=== PATIENT | female | born 1975 | race Hispanic/Latino ===

== ENCOUNTER 2018-09-15 00:12 | Outpatient (CLI) | payer BC ==
[2018-09-15 12:35] LABS: Hemoglobin 13.6 g/dL (12.0-16.0); Mean Corpuscular Hemoglobin 32.1 pg (27.0-31.0); Mean Corpuscular Volume 94.6 fL (78.0-98.0); Mean Platelet Volume 6.9 fL (7.4-10.4); Platelet Count 379 thou/uL (130-400); RBC Distribution Width 10.3 % (11.5-14.5); Red Blood Cell (RBC) Count 4.22 mill/uL (4.20-5.40); White Blood Cell (WBC) Count 8.1 thou/uL (4.8-10.8)
[2018-09-15 12:42] LABS: Prothrombin Time 12.9 SEC (12.0-14.7)
[2018-09-15 12:43] LABS: PTT 32.5 SEC (22.9-36.1)
[2018-09-15 12:59] LABS: Anion Gap 11 mmol/L (10-20); BUN (Urea Nitrogen) 13 mg/dL (7.0-18.7); Calc. Creatinine Clearance 0 mL/min (70-130); Calcium 9.7 mg/dL (7.8-10.44); Carbon Dioxide 26 mmol/L (22-29); Chloride 106 mmol/L (98-107); Estimated GFR-MDRD 64; Glucose 91 mg/dL (70-105); Potassium 3.7 mmol/L (3.5-5.1); Sodium 139 mmol/L (136-145)
--- NOTE | 2018-09-17 16:36 | EKG ---
Test Reason : Blood Pressure : / mmHG Vent. Rate : 073 BPM Atrial Rate : 073 BPM P-R Int : 132 ms QRS Dur : 078 ms QT Int : 378 ms P-R-T Axes : 067 092 070 degrees QTc Int : 416 ms Normal sinus rhythm with sinus arrhythmia Rightward axis Borderline ECG No previous ECGs available Confirmed by DR. Tatiana HARRY ([id number]) on 09/17/2018 4:35:58 PM Referred By: KAYE Confirmed By:DR. Tatiana HARRY
== END 2018-09-15 00:13 | disposition home or self-care (01) ==
LOC: LABBT 00:12
PROVIDERS: ATTEND Surgery
DX: Z01.818 Encounter for other preprocedural examination (principal); M48.02 Spinal stenosis, cervical region; M54.12 Radiculopathy, cervical region
CPT/HCPCS: 80048; 85027; 85610; 85730; 93005; 93010

== ENCOUNTER 2018-09-21 05:37 | Day surgery (SDC) | payer BC ==
[2018-09-15 11:46] VITALS: BMI 24.4
[2018-09-21] MEDS ORDERED: Fentanyl 250 MCG/5 ML VIAL ONE (06:21)
[2018-09-21] MEDS ORDERED: Thrombin 5000 UNITS/5 ML VIAL ONE (06:33)
[2018-09-21] MEDS ORDERED: Sodium Chloride 0.9% 10 ML ONE (06:34)
[2018-09-21] MEDS ORDERED: Mag-Al 1200 mg/1200 mg/30 ML UDCUP PO PRN (09:44)
[2018-09-21] MEDS ORDERED: Acetaminophen 325 MG TAB PO PRN (09:44)
[2018-09-21] MEDS ORDERED: Morphine 2 MG/ML SYRINGE SLOW IVP PRN (09:44)
[2018-09-21] MEDS ORDERED: HYDROcodone/Acetaminophen 7.5/325 mg Tablet PO PRN (09:44)
[2018-09-21] MEDS ORDERED: Fleet Enema 133 ML BOT PR PRN (09:44)
[2018-09-21] MEDS ORDERED: Milk Of Magnesia 30 ML UDCUP PO PRN (09:44)
[2018-09-21] MEDS ORDERED: Ondansetron PF 4 MG/2 ML Vial IVP PRN (09:44)
[2018-09-21] MEDS ORDERED: Bisacodyl 10 MG SUPP PR PRN (09:44)
[2018-09-21] MEDS ORDERED: Fentanyl 100 MCG/2 ML VIAL ONE (09:45)
[2018-09-21] MEDS ORDERED: CEFAZOLIN 2 GM in Premix Bag 1 BAG IVPB SCH (09:45)
[2018-09-21] MEDS ORDERED: Promethazine HCl 25 MG/ML VIAL SLOW IVP PRN (09:49)
[2018-09-21] MEDS ORDERED: Promethazine HCl 25 MG/ML VIAL IM PRN (09:49)
[2018-09-21] MEDS ORDERED: HYDROmorphone 2 MG/ML VIAL SLOW IVP PRN (09:49)
[2018-09-21] MEDS ORDERED: Meperidine HCl/PF 25 MG/ML VIAL SLOW IVP PRN (09:49)
[2018-09-21] MEDS ORDERED: Morphine Sulfate 2 MG/ML SYRINGE SLOW IVP PRN (09:49)
[2018-09-21] MEDS ORDERED: Ondansetron HCl/PF 4 MG/2 ML Vial IVP PRN (09:49)
[2018-09-21] MEDS ORDERED: Ketorolac Tromethamine 30 MG/ML VIAL IVP PRN (09:49)
[2018-09-21] MEDS ORDERED: HYDROmorphone 2 MG/ML VIAL ONE (09:54)
[2018-09-21] MEDS ORDERED: tiZANidine HCl 4 MG TAB ONE ×2 (10:05→16:36)
[2018-09-21] MEDS ORDERED: Rocuronium Bromide 10 MG/ML (10ML VIAL) ONE (12:16)
[2018-09-21] MEDS ORDERED: Glycopyrrolate 0.2 MG/ML 5 ML SYRINGE ONE (12:16)
[2018-09-21] MEDS ORDERED: PROPOFOL 200 MG/20 ML VIAL ONE (12:16)
[2018-09-21] MEDS ORDERED: Ondansetron PF 4 MG/2 ML Vial ONE (12:16)
[2018-09-21] MEDS ORDERED: ePHEDrine 50 MG/ML VIAL ONE (12:16)
[2018-09-21] MEDS ORDERED: Lidocaine 1% PF 5 ML VIAL ONE (12:16)
[2018-09-21] MEDS ORDERED: Dexamethasone 20 MG/5 ML VIAL ONE (12:16)
[2018-09-21] MEDS ORDERED: PHENYLEPHRINE-NS 100 MCG/ML 10 ML SYRINGE ONE (12:16)
--- NOTE | 2018-09-21 16:11 | OP ---
DATE OF PROCEDURE: 09/21/2018 OPERATING ROOM: 12. WOUND CLASSIFICATION: Type 1 wound. PRINCIPAL EMBEDDED SOFTWARE ENGINEER: Olvin Henderson PA-C. PRE-PROCEDURE DIAGNOSIS: Neck and right arm pain and weakness with right C6 radiculopathy and C5-C6 disk extrusion. POSTPROCEDURE DIAGNOSIS: Neck and right arm pain and weakness with right C6 radiculopathy and C5-C6 disk extrusion. PROCEDURES PERFORMED: 1. Anterior C5-C6 diskectomy for decompression of spinal cord nerve roots. 2. Interbody spacer placement, packed with local bone autograft obtained same incision and allograft for arthrodesis. 3. Anterior cervical plate and screw fixation C5-C6. 4. Use of operative microscope for microdissection. DESCRIPTION OF PROCEDURE: After informed consent was obtained from the patient, the patient was brought to the OR. Proper patient, pause, and identification were carried out. She was placed under excellent endotracheal anesthesia and positioned supine on the OR table. All appropriate points were padded. We identified a right transverse charity to allow for approach to the C5-C6 segment. This region was sterilely cleansed, prepared, and draped. Proper patient, pause, and identification were carried out. The wound was then opened with combination of sharp, monopolar, and blunt dissection. The anterior C5-C6 segments were exposed after proceeding lateral to the larynx, pharynx, and tracheoesophageal bundle and medial to the right carotid sheath. We identified the longus colli muscles and these were swept laterally. Localization film confirmed our area of interest. We then turned our attention to retraction and distraction at the C5-C6 segment. The microscope was brought in for microdissection and a diskectomy was performed at C5-C6 with decompression of spinal cord and bilateral C6 nerve roots. Disk material was specifically removed out of the C6 foramina as well given that was the source of the patient's symptoms. We then placed an interbody spacer for appropriate dimension and this was packed with local bone autograft obtained from same incision, allograft. The microscope was then removed and anterior cervical plate and screw fixation at C5-C6 occurred with final tightening. Copious irrigation occurred throughout as did maximizing hemostasis. The wound was then closed in anatomic layers over a drain. The patient then emerged from anesthesia. Job ID: [id number]
[2018-09-21] MEDS: Sodium Chloride 0.9% 1,000 ML IV SCH ×2 (18:13→23:10)
[2018-09-21] MEDS: CEFAZOLIN 2 GM in Premix Bag 1 BAG IVPB SCH ×2 (18:14→22:16)
[2018-09-21] MEDS: traMADol HCl 50 MG TAB PO PRN (19:12)
[2018-09-21] MEDS: tiZANidine HCl 4 MG TAB PO PRN (20:42)
[2018-09-21] MEDS: Acetaminophen/Codeine 30-300mg Tablet PO PRN (20:42)
[2018-09-22] MEDS: Acetaminophen/Codeine 30-300mg Tablet PO PRN (02:27)
[2018-09-22] MEDS: Sodium Chloride 0.9% 1,000 ML IV SCH (02:27)
[2018-09-22] MEDS: CEFAZOLIN 2 GM in Premix Bag 1 BAG IVPB SCH (06:12)
[2018-09-22 07:24] VITALS: BP 106/72; TEMP 98.3
[2018-09-22] MEDS: tiZANidine HCl 4 MG TAB PO PRN (07:53)
[2018-09-22] MEDS: traMADol HCl 50 MG TAB PO PRN (07:53)
--- NOTE | 2018-09-22 10:09 | PRG ---
DATE OF SERVICE: 09/22/2018 SUBJECTIVE: Ms. Alvarado is postoperative day 1 from C5-C6 ACDF. She has had improvement in her arm pain and weakness. She, neurologically, is doing well. Her drain output has been satisfactory. We will plan on dismissal and have gone over interim postoperative issues. Job ID: [id number]
== END 2018-09-22 10:49 | disposition home or self-care (01) ==
LOC: SDC 05:37 → SURG A 09:44 → SDC 09-22 10:49
PROVIDERS: ATTEND Surgery
PROC: 0RG10A0 Fusion of Cervical Vertebral Joint with Interbody Fusion Device, Anterior Approach, Anterior Column, Open Approach (ICD-10-PCS; principal; 2018-09-21)
PROC: 0RT30ZZ Resection of Cervical Vertebral Disc, Open Approach (ICD-10-PCS; principal; 2018-09-21)
DX: M50.122 Cervical disc disorder at C5-C6 level with radiculopathy (principal); M48.02 Spinal stenosis, cervical region
CPT/HCPCS: 76000; C1713; C1776; J1100; J1170; J2001; J2405; J2704; J3010; J3490

== ENCOUNTER 2018-11-03 09:33 | Outpatient (CLI) | payer BC ==
--- NOTE | 2018-11-03 09:53 | RAD ---
Exam: 3 views cervical spine History status post surgery, 09/21/2018. Bowel. FINDINGS: No prevertebral soft tissue swelling. Predental space is normal. Cervical spine vertebral b zoie height is maintained. No fracture. Straightening of normal cervical lordosis may be due to patient position spasm. Anterior fusion plate with transvertebral body screw at the C5 5-C6 level. No perihardware lucency. D isc prosthesis at C5-C6. Limited view of the open-mouth projection On the AP projection, no malalignment IMPRESSION: Uncomplicated cervical fusion hardware.
== END 2018-11-03 09:34 | disposition home or self-care (01) ==
LOC: TBSIIMAG 09:33
PROVIDERS: ATTEND Surgery
DX: M50.10 Cervical disc disorder with radiculopathy, unspecified cervical region (principal); Z98.1 Arthrodesis status
CPT/HCPCS: 72040